=== PATIENT | female | born 1965 | race Hispanic/Latino ===

== ENCOUNTER → 2021-07-19 | Day surgery (SDC) | payer BC ==
[2021-07-17 09:14] LABS: HEMATOCRIT 39.7 % (34.2-44.1)
[2021-07-17 09:33] LABS: ANION GAP 13.5 mmol/L (8-16); CALCIUM 9.4 mg/dL (8.4-10.2); CREATININE, SERUM 0.61 mg/dL (0.57-1.11); POTASSIUM 3.5 mmol/L (3.5-5.1)
[~2021-07-19] MED LIST: ATENOLOL50 MG PO; BALANCED SALT SOLN (OPTH) 15 ML BTL IO ONE; BUPIVACAINE HC 0.75% PF 10ML VIAL INJ ONE; CYCLOPENTOLATE HCL 2% OPTH SOLN 2 ML BTL OP ONE; EPINEPHRINE HCL 1:1000 1ML 1 MG/ML AMP ONE; GATIFLOXACIN(OPTH) 5 ML LIQD ONE; HYDROCHLOROTHIA25 MG PO; LIDOCAINE HCL-PF 4% 40 MG/1 ML 5ML AMP ONE; PHENYLEPHRINE HCL 2 ML DROPS ONE; PILOCARPINE HCL(OPTH) 15 ML LIQD ONE; POVIDONE IODINE 5% (OPTH) 30 ML BTL ONE; TOBRAMYCIN/DEXAMETHASONE(OPTH) 3.5 GM TUBE ONE
[2021-07-19 10:55] VITALS: BP 112/66
== END | disposition home or self-care (01) ==
LOC: OR 06:43
PROVIDERS: ATTEND Ophthalmology
DX: H25.11 Age-related nuclear cataract, right eye (principal); I10 Essential (primary) hypertension; R00.1 Bradycardia, unspecified; Z88.0 Allergy status to penicillin; Z01.810 Encounter for preprocedural cardiovascular examination; Z01.812 Encounter for preprocedural laboratory examination; Z20.822 Contact with and (suspected) exposure to COVID-19
CPT/HCPCS: 36415; 66984; 80048; 85014; 85018; 93005; J0171; U0002

== ENCOUNTER 2023-08-14 14:13 | Outpatient (RCR) | payer BC ==
[~2023-08-14 14:13] MED LIST changes: -BALANCED SALT SOLN (OPTH) 15 ML BTL IO ONE; -BUPIVACAINE HC 0.75% PF 10ML VIAL INJ ONE; -CYCLOPENTOLATE HCL 2% OPTH SOLN 2 ML BTL OP ONE; -EPINEPHRINE HCL 1:1000 1ML 1 MG/ML AMP ONE; -GATIFLOXACIN(OPTH) 5 ML LIQD ONE; -LIDOCAINE HCL-PF 4% 40 MG/1 ML 5ML AMP ONE; -PHENYLEPHRINE HCL 2 ML DROPS ONE; -PILOCARPINE HCL(OPTH) 15 ML LIQD ONE; -POVIDONE IODINE 5% (OPTH) 30 ML BTL ONE; -TOBRAMYCIN/DEXAMETHASONE(OPTH) 3.5 GM TUBE ONE
== END 2023-09-09 ==
LOC: PT 14:13
PROVIDERS: ATTEND Podiatrist Foot & Ankle Surgery
DX: M21.962 Unspecified acquired deformity of left lower leg (principal); M21.961 Unspecified acquired deformity of right lower leg

== ENCOUNTER 2023-09-11 09:09 | Outpatient (RCR) | payer BC | END 2023-10-09 | LOC: PT 09:09 | PROVIDERS: ATTEND Podiatrist Foot & Ankle Surgery | DX: M25.572 Pain in left ankle and joints of left foot (principal); M25.571 Pain in right ankle and joints of right foot; R26.2 Difficulty in walking, not elsewhere classified; M21.542 Acquired clubfoot, left foot; M21.541 Acquired clubfoot, right foot; M21.6X1 Other acquired deformities of right foot; M21.6X2 Other acquired deformities of left foot; M62.81 Muscle weakness (generalized) ==